=== PATIENT | female | born 1985 | race Caucasian/White ===

== ENCOUNTER → 2018-04-21 13:44 | Outpatient (CLI) | payer OTHER, SELFPAY ==
[2018-04-22 14:30] LABS: Strep Grp B PCR NEG for Grp B Strep
== END ==
DX: Z3A.37 37 weeks gestation of pregnancy (principal)
CPT/HCPCS: 87653

== ENCOUNTER 2018-05-20 17:48 | Observation (INO) | payer OTHER, SELFPAY ==
[2018-05-20] MEDS: miSOPROStol 25 MCG TABLET VAG (21:15)
[2018-05-20 22:23] VITALS: BP 125/70
[2018-05-21] MEDS: OXYTOCIN PREMIX 30 UNIT/500 ML PLAST..BAG IV (08:09)
[2018-05-21] MEDS: LACTATED RINGERS 1,000 ML 125 ML IV (08:09)
[2018-05-21] MEDS: miSOPROStol 25 MCG TABLET VAG ×2 (18:47→23:15)
[2018-05-21] MEDS: ZOLPIDEM 5 MG TABLET 10 MG PO (22:35)
== END 2018-05-22 08:45 | disposition home or self-care (01) ==
DX: O48.0 Post-term pregnancy (principal); Z3A.40 40 weeks gestation of pregnancy
CPT/HCPCS: 59050; 59200; 86850; 86900; 86901; G0378; G0379; J2590

== ENCOUNTER 2018-05-22 17:52 | Inpatient (IN) | payer OTHER, SELFPAY ==
[2018-05-22] MEDS: miSOPROStol 25 MCG TABLET VAG ×2 (18:55→23:10)
[2018-05-22 20:32] VITALS: BP 113/66
[2018-05-22] MEDS: ZOLPIDEM 5 MG TABLET 10 MG PO (23:10)
[2018-05-23] MEDS: miSOPROStol 25 MCG TABLET VAG (03:35)
--- NOTE | 2018-05-23 07:14 | P.HPOB_ITS ---
OB HPI History of Present Illness Chief complaint: obs Narrative: Pham Awad is a 33 year old female two para one who presents for induction of labor because of post date is some. The patient's final YI based on early ultrasound is 05/07/2018. She is now almost 42 weeks . The patient had two induction attempts canceled because of a busy labor floor. She has received three doses of Cytotec as her cervix had a Dee score of six. The patient's antepartum course was unremarkable. Her blood pressures remained normotensive. Urines remain negative for glucose and protein. Her weight one from 189-212 lb. 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 All of her antepartum screening was entirely negative. Ultrasound on the 13 of May showed vertex presentation and estimated weight of 7 lb 12 oz [facility] Social History Smoking Status: Former smoker Meds Home Medications Medication Instructions Recorded Confirmed Type acyclovir 400 mg tablet 400 mg PO BID #60 tab 04/28/18 05/22/18 Rx 1 tab PO DAILY 05/22/18 05/22/18 History Probiotic 1 cap PO DAILY 05/22/18 05/22/18 History Allergies Allergy/AdvReac Type Severity Reaction Status Date / Time hydrocodone AdvReac Mild itchy Verified 05/22/18 18:13 Exam HENMT Head: normal to inspection Ears: hearing grossly normal bilaterally Nose: external nose normal Face and sinus: normal facial exam Mouth: oral mucosae normal and tongue normal Teeth and gingiva: dentition normal Throat: posterior oropharynx normal and uvula midline Eyes General: appearance normal, both eyes and all related structures Eyelids: eyelids normal Conjunctivae: conjunctivae normal Sclera: sclerae normal Cornea: corneas normal Pupils: PERRL Neck Neck: normal visual inspection Chest Breast inspection: normal inspection of the breasts Breast Palpation: normal palpation of the breasts Resp Effort & Inspection: normal respiratory effort Auscultation: clear to auscultation bilaterally Cardio Palpation: normal PMI Rate: regular rate Rhythm: regular rhythm Heart Sounds: S1 normal and S2 normal GI Palpation: soft and no hepatosplenomegaly Percussion: normal to percussion Auscultation: normal bowel sounds OB/External & Speculum: external exam normal Manual OB Exam: dilated (2 cm) 2, effaced (70 ffaced) 75% and station (Minus two ) -2 Uterus Location (Fundal Height): 41 Presentation: vertex Estimated Weight (lbs): 8 Back/Spine/Pelvis Thoracic/Lumbar Spine: thoracic and lumbar spine normal to inspection Skin Lesions: no lesions Rashes: no rashes Trauma: no lacerations or abrasions Wounds: no wounds Neuro General: alert, tone normal, no focal motor deficits and normal sensation to monofilament Extrem General: normal to inspection and full ROM Psych Appearance: grossly normal
[2018-05-23] MEDS: LACTATED RINGERS 1,000 ML 125 ML IV (07:30)
[2018-05-23] MEDS: OXYTOCIN PREMIX 30 UNIT/500 ML PLAST..BAG IV (07:40)
--- NOTE | 2018-05-23 17:22 | PM.OBPRVD ---
Delivery date: 05/23/18 Intrapartal events: None Induction method: per pitocin protocol Delivery augmentation: rupture of membranes Delivery monitor: external FHT and external uterine Route of delivery: Episiotomy description: None Laceration description: None Estimated blood loss (mL): 350 Anesthesia type: Epidural Complications: None Narrative: Patient complete and pushed for 14 min. At 10:54 a.m., a live male delivered spontaneously over an intact perineum. There was a moderate shoulder dystocia which was relieved with macro Chacon and suprapubic pressure. The infant was placed on mom's abdomen. The cord was double clamped and cut. Cord bloods were obtained. Placenta delivered intact with a three-vessel cord at 10:58 a.m.. Pitocin was given in the IV fluids. Fundus was firm. No lacerations. Apgars 8 at 1 min and 9 at 5 min. Weight 9 lb 5.07 oz. . No analgesia. Mom and stable to recovery. Plan for aftercare: To routine care
--- NOTE | 2018-05-23 17:25 | P.PCNOB_ITS ---
Delivery date: 05/23/18 Intrapartal events: None Induction method: per pitocin protocol Delivery augmentation: rupture of membranes Delivery monitor: external FHT and external uterine Route of delivery: Episiotomy description: None Laceration description: None Estimated blood loss (mL): 350 Anesthesia type: Epidural Complications: None Narrative: Patient complete and pushed for 14 min. At 10:54 a.m., a live male delivered spontaneously over an intact perineum. There was a moderate shoulder dystocia which was relieved with macro Chacon and suprapubic pressure. The infant was placed on mom's abdomen. The cord was double clamped and cut. Cord bloods were obtained. Placenta delivered intact with a three- vessel cord at 10:58 a.m.. Pitocin was given in the IV fluids. Fundus was firm. No lacerations. Apgars 8 at 1 min and 9 at 5 min. Weight 9 lb 5.07 oz. . No analgesia. Mom and stable to recovery. Plan for aftercare: To routine care
[2018-05-23] MEDS: IBUPROFEN 600 MG TABLET PO (17:41)
[2018-05-24 01:14] VITALS: TEMP 36.6
[2018-05-24] MEDS: IBUPROFEN 600 MG TABLET PO (01:14)
[2018-05-24 05:52] LABS: Hematocrit 31.8 % (36-46); Hemoglobin 10.9 g/dL (12.0-16.0)
--- NOTE | 2018-05-24 08:30 | P.DS_ITS ---
Discharge Providers Date of admission: 05/22/18 17:52 Primary care physician: Robin Perez MD Consults: 05/23/18 12:07 Consult to [facility] Routine Comment: Discharge provider: Robin Perez MD Summary Date Patient Seen: 05/24/18 Time Patient Seen: 08:23 Peripartum Data Infant Delivery Method: Natural Vaginal Laceration description: None Procedures: Spontaneous vaginal delivery with moderate shoulder dystocia corrected five Alyssa maneuver complications: none Status at Discharge Functional status at discharge: independent ambulation Overall status at discharge: patient is back to baseline Time Spent with Patient Total time spent providing and/or coordinating discharge services: 30 min Greater than 30 minutes Specific discharge activities: No heavy lifting No coitus Objective Labs Result Diagrams: 05/24/18 05:43 Labs: Laboratory Results - last 24 hr 05/24/18 05:43 Hgb 10.9 L Hct 31.8 L Discharge Plan Discharge Plan Patient Disposition: Home, Self-Care Discharge comment: Discharged home Office Dr. Karimi four weeks Discharge Med Rec/Prescriptions Prescriptions: New oxycodone-acetaminophen 5-325 mg Tablet 2 tab PO Q4HR Qty: 30 RF: 0 ibuprofen 600 mg Tablet 600 mg PO Q6HR PRN (Reason: Pain, Mild (1-3)) Qty: 20 RF: 0 docusate sodium 250 mg Capsule 250 mg PO DAILY Qty: 14 RF: 0 lanolin [Tir-N-[id number]] Cream 1 applic Topical PRN PRN (Reason: Tenderness) Qty: 1 RF: 0 Continue 1 tab PO DAILY RF: 0 Probiotic 1 cap PO DAILY RF: 0 Discontinued acyclovir 400 mg tablet 400 mg PO BID Qty: 60 RF: 1 Follow up/Referrals: Robin Perez MD [Primary Care Provider] - 1 Month Provider Discharge Instructions Diet: Diet as Tolerated Activity: routine activity no coitus 4 weeks Wound Care Report to your healthcare provider any signs of infection, such as:: chills, fever, night sweats, increased pain and unusual drainage Discharge Data Primary Care Provider: Robin Perez Attending Provider: Robin Perez Admit Date/Time: 05/22/18 17:52
[2018-05-24 09:21] VITALS: BP 113/66; TEMP 36.6
== END 2018-05-24 10:45 | disposition home or self-care (01) | DRG 774 ==
PROVIDERS: Obstetrics & Gynecology
DX: O48.0 Post-term pregnancy (principal); O98.52 Other viral diseases complicating childbirth; Z3A.41 41 weeks gestation of pregnancy; B00.9 Herpesviral infection, unspecified; Z37.0 Single live birth; O66.0 Obstructed labor due to shoulder dystocia
CPT/HCPCS: 36415; 59050; 59200; 59400; 59409; 85014; 85018; G0379; J2590